=== PATIENT | female | born 1940 | race Caucasian/White ===

== ENCOUNTER 2020-08-30 07:06 | Emergency (ER) | payer OTHER ==
[~2020-08-30] VITALS: Ht 162.6 cm; Wt 77.0 kg
[2020-08-30] MEDS ORDERED: SODIUM CHLORIDE 0.9% 500 ML IV ONE (07:45)
[2020-08-30 08:46] LABS: BASOPHILS % 0.3 % (0.0-2.0); EOSINOPHILS % 0.9 % (0.0-5.0); HEMATOCRIT. 42.2 % (36.0-48.0); HEMOGLOBIN. 14.2 g/dL (12.0-16.0); LYMPHOCYTES % 17.7 % (20.0-50.0); MEAN CORPUSCULAR HEMOGLOBIN 30.3 pg (28.0-32.0); MEAN CORPUSCULAR VOLUME 90.1 fL (81.0-99.0); MEAN PLATELET VOLUME 8.7 fl (7.4-10.4); MONOCYTES % 7.1 % (2.0-8.0); PLATELET 265 x1000/uL (130-400); RED BLOOD CELL COUNT 4.68 mill/uL (4.2-5.4); RED CELL DISTRIBUTION WIDTH 14.1 % (11.6-14.6)
[2020-08-30 08:53] LABS: CHLORIDE 104 mEq/L (98-107)
[2020-08-30 10:00] VITALS: BP 142/76
== END 2020-08-30 11:32 | disposition home or self-care (01) ==
LOC: ER 07:34
DX: R42 Dizziness and giddiness (principal); E78.00 Pure hypercholesterolemia, unspecified; E11.9 Type 2 diabetes mellitus without complications
CPT/HCPCS: 36415; 71045; 80053; 83880; 84484; 85025; 93005; 96360; 99285; J7030

== ENCOUNTER 2021-11-25 10:06 | Emergency (ER) | payer OTHER, MEDICAID ==
[~2021-11-25] VITALS: Ht 167.6 cm; Wt 70.0 kg
[2021-11-25] MEDS ORDERED: MECLIZINE 25MG TABLET PO ONE ×2 (10:15→13:45)
[2021-11-25] MEDS ORDERED: SODIUM CHLORIDE 0.9% 1,000 ML IV ONE (10:15)
[2021-11-25 10:38] LABS: BASOPHILS % 0.3 % (0.0-2.0); EOSINOPHILS % 0.7 % (0.0-5.0); HEMATOCRIT. 42.3 % (36.0-48.0); HEMOGLOBIN. 14.1 g/dL (12.0-16.0); LYMPHOCYTES % 22.8 % (20.0-50.0); MEAN CORPUSCULAR HEMOGLOBIN 30.5 pg (28.0-32.0); MEAN CORPUSCULAR VOLUME 91.5 fL (81.0-99.0); MEAN PLATELET VOLUME 8.1 fl (7.4-10.4); MONOCYTES % 6.6 % (2.0-8.0); NEUTROPHILS % 69.6 % (40.0-76.0); PLATELET 285 x1000/uL (130-400); RED BLOOD CELL COUNT 4.63 mill/uL (4.2-5.4); RED CELL DISTRIBUTION WIDTH 13.5 % (11.6-14.6)
[2021-11-25 10:48] LABS: CHLORIDE 104 mEq/L (98-107)
[2021-11-25 10:55] LABS: PHOSPHORUS 3.2 mg/dL (2.5-4.9)
[2021-11-25 11:39] LABS: CLARITY URINE CLEAR (CLEAR); COLOR URINE YELLOW (YELLOW); KETONES URINE NEGATIVE (NEGATIVE); LEUKOCYTE ESTERASE URINE NEGATIVE (NEGATIVE); NITRITE URINE NEGATIVE (NEGATIVE); OCCULT BLOOD URINE TRACE (NEGATIVE); PH URINE 8.5 (4.5-8.0); PROTEIN URINE 1+ (NEGATIVE); SPECIFIC GRAVITY URINE 1.008 (1.005-1.030); UROBILINOGEN URINE 0.2 E.U./dL (0.2-1.0)
[2021-11-25] MEDS ORDERED: MECL-159 MT (12:27)
[2021-11-25] MEDS ORDERED: KETOROLAC 30MG/ML VIAL IV ONE (13:45)
[2021-11-25] MEDS ORDERED: ASPIRIN 81MG TABLET PO ONE (16:45)
[2021-11-25] MEDS ORDERED: LORAZEPAM 2MG/ML CPJ IV ONE (16:45)
[2021-11-25 18:23] VITALS: BP 123/65
== END 2021-11-25 18:29 | disposition home or self-care (01) ==
LOC: ER 10:08
DX: R42 Dizziness and giddiness (principal); I25.10 Atherosclerotic heart disease of native coronary artery without angina pectoris; E11.9 Type 2 diabetes mellitus without complications; E78.00 Pure hypercholesterolemia, unspecified; I10 Essential (primary) hypertension
CPT/HCPCS: 36415; 70450; 71045; 80053; 81003; 82962; 83735; 83880; 84100; 84484; 85025; 93005; 96361; 96374; 96375; 99285; J1885; J2060; J7030; J8597

== ENCOUNTER 2022-01-25 18:04 | Inpatient (IN) | payer OTHER, MEDICAID ==
[~2022-01-25] VITALS: Ht 154.9 cm; Wt 78.5 kg
[~2022-01-25 18:04] MED LIST: MECL-159 MT
[2022-01-25] MEDS ORDERED: SODIUM CHLORIDE 0.9% 1,000 ML IV ONE (18:45)
[2022-01-25 18:56] LABS: BASOPHILS % 0.5 % (0.0-2.0); EOSINOPHILS % 0.6 % (0.0-5.0); HEMATOCRIT. 39.8 % (36.0-48.0); HEMOGLOBIN. 13.4 g/dL (12.0-16.0); LYMPHOCYTES % 22.1 % (20.0-50.0); MEAN CORPUSCULAR HEMOGLOBIN 30.6 pg (28.0-32.0); MEAN CORPUSCULAR VOLUME 91.1 fL (81.0-99.0); MEAN PLATELET VOLUME 8.2 fl (7.4-10.4); MONOCYTES % 7.3 % (2.0-8.0); NEUTROPHILS % 69.5 % (40.0-76.0); PLATELET 283 x1000/uL (130-400); RED BLOOD CELL COUNT 4.37 mill/uL (4.2-5.4); RED CELL DISTRIBUTION WIDTH 13.6 % (11.6-14.6)
[2022-01-25 19:00] LABS: CHLORIDE 101 mEq/L (98-107)
[2022-01-25] MEDS ORDERED: ASPIRIN 325MG EC TABLET PO ONE (20:30)
[2022-01-25] MEDS ORDERED: MELATONIN 3MG TABLET PO PRN (23:45)
[2022-01-25] MEDS ORDERED: ONDANSETRON HCL 4MG/2ML INJ IV PRN (23:45)
[2022-01-25] MEDS ORDERED: ACETAMINOPHEN 325MG TABLET PO PRN (23:45)
[2022-01-25] MEDS ORDERED: BUPR-102 PO (23:49)
[2022-01-25] MEDS ORDERED: ATOR20TA65 PO (23:49)
[2022-01-25] MEDS ORDERED: LISI40TA13 PO (23:49)
[2022-01-25] MEDS ORDERED: FAMO40TA7 PO (23:49)
[2022-01-25] MEDS ORDERED: MELA10TA2 PO (23:49)
[2022-01-25] MEDS ORDERED: BUPR100T13 PO (23:49)
[2022-01-26] VITALS (7 sets, daily range): BP systolic 117–131; BP diastolic 51–62
[2022-01-26 07:41] LABS: BASOPHILS % 0.4 % (0.0-2.0); HEMATOCRIT. 38.8 % (36.0-48.0); HEMOGLOBIN. 13.1 g/dL (12.0-16.0); LYMPHOCYTES % 23.3 % (20.0-50.0); MEAN CORPUSCULAR HEMOGLOBIN 30.8 pg (28.0-32.0); MEAN CORPUSCULAR VOLUME 90.9 fL (81.0-99.0); MEAN PLATELET VOLUME 8.4 fl (7.4-10.4); MONOCYTES % 8.6 % (2.0-8.0); NEUTROPHILS % 66.7 % (40.0-76.0); PLATELET 267 x1000/uL (130-400); RED BLOOD CELL COUNT 4.27 mill/uL (4.2-5.4); RED CELL DISTRIBUTION WIDTH 13.7 % (11.6-14.6)
[2022-01-26] MEDS: ENOXAPARIN 40MG/0.4ML SYR SUBCUT SCH (08:11)
[2022-01-26] MEDS: ASPIRIN 81MG TABLET PO SCH (08:11)
[2022-01-26] MEDS: FAMOTIDINE 20MG TABLET PO SCH (08:11)
[2022-01-26] MEDS: LISINOPRIL 40MG TABLET PO SCH (08:12)
[2022-01-26] MEDS: BUPROPION HCL 150MG SR TABLET PO SCH (08:15)
[2022-01-26 08:26] LABS: CHLORIDE 104 mEq/L (98-107)
[2022-01-26 08:37] LABS: HDL CHOLESTEROL 41 mg/dL (40-59); LDL CHOLESTEROL 50 mg/dL (5-100)
[2022-01-26] MEDS ORDERED: BUPROPION HCL 150 MG PO SCH (09:00)
[2022-01-26] MEDS: ATORVASTATIN CALCIUM 20MG TABLET PO SCH (21:08)
[2022-01-27] VITALS (7 sets, daily range): BP systolic 110–132; BP diastolic 51–65
[2022-01-27 07:29] LABS: BASOPHILS % 0.4 % (0.0-2.0); EOSINOPHILS % 0.8 % (0.0-5.0); HEMATOCRIT. 39.9 % (36.0-48.0); HEMOGLOBIN. 13.5 g/dL (12.0-16.0); LYMPHOCYTES % 23.5 % (20.0-50.0); MEAN CORPUSCULAR HEMOGLOBIN 30.9 pg (28.0-32.0); MEAN CORPUSCULAR VOLUME 91.6 fL (81.0-99.0); MEAN PLATELET VOLUME 8.1 fl (7.4-10.4); MONOCYTES % 8.4 % (2.0-8.0); NEUTROPHILS % 66.9 % (40.0-76.0); PLATELET 278 x1000/uL (130-400); RED BLOOD CELL COUNT 4.36 mill/uL (4.2-5.4); RED CELL DISTRIBUTION WIDTH 13.3 % (11.6-14.6)
[2022-01-27 08:31] LABS: CHLORIDE 105 mEq/L (98-107)
[2022-01-27 08:39] LABS: PHOSPHORUS 3.7 mg/dL (2.5-4.9)
[2022-01-27] MEDS: ENOXAPARIN 40MG/0.4ML SYR SUBCUT SCH (08:39)
[2022-01-27] MEDS: BUPROPION HCL 150MG SR TABLET PO SCH (08:40)
[2022-01-27] MEDS: ASPIRIN 81MG TABLET PO SCH (08:40)
[2022-01-27] MEDS: FAMOTIDINE 20MG TABLET PO SCH (08:40)
[2022-01-27] MEDS: LISINOPRIL 40MG TABLET PO SCH (08:40)
[2022-01-27] MEDS: ATORVASTATIN CALCIUM 20MG TABLET PO SCH (20:20)
[2022-01-28] VITALS: BP 123/44
[2022-01-28 04:00] VITALS: BP 119/53
[2022-01-28 06:26] LABS: BASOPHILS % 0.4 % (0.0-2.0); EOSINOPHILS % 1.1 % (0.0-5.0); HEMATOCRIT. 39.1 % (36.0-48.0); HEMOGLOBIN. 13.3 g/dL (12.0-16.0); LYMPHOCYTES % 24.8 % (20.0-50.0); MEAN CORPUSCULAR HEMOGLOBIN 30.6 pg (28.0-32.0); MEAN CORPUSCULAR VOLUME 90.1 fL (81.0-99.0); MEAN PLATELET VOLUME 8.3 fl (7.4-10.4); MONOCYTES % 9.2 % (2.0-8.0); NEUTROPHILS % 64.5 % (40.0-76.0); PLATELET 281 x1000/uL (130-400); RED BLOOD CELL COUNT 4.35 mill/uL (4.2-5.4); RED CELL DISTRIBUTION WIDTH 13.3 % (11.6-14.6)
[2022-01-28 08:00] VITALS: BP 143/58
[2022-01-28 08:14] LABS: CHLORIDE 102 mEq/L (98-107)
[2022-01-28 08:33] LABS: PHOSPHORUS 3.7 mg/dL (2.5-4.9)
[2022-01-28] MEDS: ASPIRIN 81MG TABLET PO SCH (10:05)
[2022-01-28] MEDS: BUPROPION HCL 150MG SR TABLET PO SCH (10:05)
[2022-01-28] MEDS: ENOXAPARIN 40MG/0.4ML SYR SUBCUT SCH (10:05)
[2022-01-28] MEDS: LISINOPRIL 40MG TABLET PO SCH (10:07)
[2022-01-28] MEDS: FAMOTIDINE 20MG TABLET PO SCH (10:07)
[2022-01-28 12:00] VITALS: BP 138/58
== END 2022-01-28 14:35 | disposition home or self-care (01) | DRG 556 ==
LOC: ER 18:04 → 8WST 20:27 → EDBEDREQTM 20:42 → EDBEDREQ 20:42 → ENRESERV 21:15
PROVIDERS: ADMIT Internal Medicine; ATTEND Internal Medicine
DX: M62.81 Muscle weakness (generalized) (principal); G45.9 Transient cerebral ischemic attack, unspecified; E78.00 Pure hypercholesterolemia, unspecified; I10 Essential (primary) hypertension; I25.10 Atherosclerotic heart disease of native coronary artery without angina pectoris; E11.9 Type 2 diabetes mellitus without complications; K21.9 Gastro-esophageal reflux disease without esophagitis; E66.9 Obesity, unspecified; Z68.32 Body mass index [BMI] 32.0-32.9, adult
CPT/HCPCS: 36415; 70551; 71045; 80048; 80053; 80061; 80076; 82962; 83735; 83880; 84100; 84484; 85025; 93005; 97162; 99285; J1650; J7030

== ENCOUNTER 2022-10-15 19:09 | Emergency (ER) | payer OTHER, MEDICAID ==
[~2022-10-15] VITALS: Ht 167.6 cm; Wt 68.0 kg
[~2022-10-15 19:09] MED LIST changes: +ATOR20TA65 PO; +BUPR-102 PO; +FAMO40TA7 PO; +LISI40TA13 PO; -MECL-159 MT; +MELA10TA2 PO
[2022-10-15 20:59] LABS: BASOPHILS % 0.3 % (0.0-2.0); EOSINOPHILS % 0.9 % (0.0-5.0); HEMATOCRIT. 39.2 % (36.0-48.0); HEMOGLOBIN. 13.2 g/dL (12.0-16.0); MEAN CORPUSCULAR HEMOGLOBIN 30.7 pg (28.0-32.0); MEAN CORPUSCULAR VOLUME 91.4 fL (81.0-99.0); MEAN PLATELET VOLUME 8.2 fl (7.4-10.4); MONOCYTES % 8.6 % (2.0-8.0); NEUTROPHILS % 69.2 % (40.0-76.0); PLATELET 278 x1000/uL (130-400); RED BLOOD CELL COUNT 4.29 mill/uL (4.2-5.4); RED CELL DISTRIBUTION WIDTH 13.7 % (11.6-14.6)
[2022-10-15 21:10] LABS: CHLORIDE 108 mEq/L (98-107)
[2022-10-16 05:45] VITALS: BP 148/62
== END 2022-10-16 06:14 | disposition home or self-care (01) ==
LOC: ER 19:09
DX: R42 Dizziness and giddiness (principal); R00.2 Palpitations; I25.10 Atherosclerotic heart disease of native coronary artery without angina pectoris; E78.00 Pure hypercholesterolemia, unspecified; I10 Essential (primary) hypertension; G51.0 Bell's palsy; Z90.49 Acquired absence of other specified parts of digestive tract; Z98.890 Other specified postprocedural states
CPT/HCPCS: 36415; 71045; 80053; 83880; 84443; 85025; 93005; 99285

== ENCOUNTER 2024-04-13 21:31 | Emergency (ER) | payer OTHER, MEDICAID ==
[~2024-04-13] VITALS: Ht 157.5 cm; Wt 72.0 kg
[~2024-04-13 21:31] MED LIST changes: +ASPI-1497 MT; -ATOR20TA65 PO; +LIP40 MT
[2024-04-13 22:07] VITALS: O2SAT 97
[2024-04-13 23:02] LABS: CLARITY URINE CLOUDY (CLEAR); COLOR URINE YELLOW (YELLOW); GLUCOSE URINE NEGATIVE (NEGATIVE); KETONES URINE NEGATIVE (NEGATIVE); LEUKOCYTE ESTERASE URINE TRACE (NEGATIVE); NITRITE URINE NEGATIVE (NEGATIVE); OCCULT BLOOD URINE 1+ (NEGATIVE); PROTEIN URINE NEGATIVE (NEGATIVE); SPECIFIC GRAVITY URINE 1.016 (1.005-1.030)
[2024-04-13 23:24] LABS: BACTERIA URINE 3+; SQUAMOUS EPITHELIAL CELL URINE FEW /lpf (RARE/1+); WBC URINE 0-2 /hpf (0-2)
[2024-04-13 23:25] LABS: CHLORIDE 101 mEq/L (98-107); POTASSIUM 3.4 mEq/L (3.5-5.1); SODIUM 136 mEq/L (136-145)
[2024-04-13 23:26] LABS: CARBON DIOXIDE 27 mEq/L (21-32)
[2024-04-13 23:27] LABS: CALCIUM 9.5 mg/dL (8.7-10.4)
[2024-04-13 23:31] LABS: CREATININE 0.8 mg/dL (0.6-1.0); GLUCOSE 119 mg/dL (70-105)
[2024-04-13 23:32] LABS: UREA NITROGEN BLOOD 10 mg/dL (9-23)
[2024-04-13 23:33] LABS: ALANINE AMINOTRANSFERASE 20 IU/L (10-49); ALBUMIN 4.6 g/dL (3.2-4.8); ASPARTATE AMINOTRANSFERASE 18 IU/L (<34)
[2024-04-13 23:34] LABS: BILIRUBIN DIRECT 0.2 mg/dL (<=3.0); BILIRUBIN TOTAL 0.5 mg/dL (0.1-1.0); PROTEIN TOTAL 7.5 g/dL (6.0-8.3)
[2024-04-13 23:35] LABS: HEMATOCRIT. 41.1 % (36.0-48.0); HEMOGLOBIN. 13.7 g/dL (12.0-16.0); MEAN CORPUSCULAR HGB CONC 33.4 g/dL (31.0-37.0); MEAN CORPUSCULAR VOLUME 92.7 fL (81.0-99.0); MEAN PLATELET VOLUME 8.6 fl (7.4-10.4); PLATELET 266 x1000/uL (130-400); RED BLOOD CELL COUNT 4.44 mill/uL (4.2-5.4); RED CELL DISTRIBUTION WIDTH 13.7 % (11.6-14.6); WHITE BLOOD COUNT 15.9 x1000/uL (4.5-11.0)
[2024-04-13 23:55] LABS: DIFFERENTIAL COMMENT 1
[2024-04-14] MEDS ORDERED: CEPH500C2 MT (00:17)
[2024-04-14] MEDS ORDERED: TOPUD MT (00:17)
[2024-04-14] MEDS ORDERED: DOCU-138 MT (00:17)
[2024-04-14 00:45] VITALS: BP 134/66; PULSE 61; RESP 16; TEMP 36.78072; O2SAT 97
[2024-04-14 01:14] LABS: PLATELET ESTIMATE NORMAL
== END 2024-04-14 00:45 | disposition home or self-care (01) ==
LOC: ER 21:31
DX: K59.00 Constipation, unspecified (principal); N39.0 Urinary tract infection, site not specified; E78.00 Pure hypercholesterolemia, unspecified; I10 Essential (primary) hypertension; Z90.49 Acquired absence of other specified parts of digestive tract; K80.20 Calculus of gallbladder without cholecystitis without obstruction; Z79.899 Other long term (current) drug therapy
CPT/HCPCS: 36415; 80048; 80076; 81003; 85025; 93005; 99284

== ENCOUNTER 2024-12-14 12:12 | Emergency (ER) | payer MEDICARE, OTHER ==
[~2024-12-14] VITALS: Ht 154.9 cm; Wt 78.0 kg
[~2024-12-14 12:12] MED LIST changes: +CEPH500C2 MT; +DOCU-138 MT; +TOPUD MT
[2024-12-14 12:18] VITALS: O2SAT 96
[2024-12-14 15:09] LABS: CHLORIDE 103 mEq/L (98-107); SODIUM 137 mEq/L (136-145)
[2024-12-14 15:10] LABS: CARBON DIOXIDE 24 mEq/L (21-32)
[2024-12-14 15:11] LABS: CALCIUM 8.7 mg/dL (8.7-10.4)
[2024-12-14 15:15] LABS: CREATININE 0.8 mg/dL (0.6-1.0)
[2024-12-14 15:16] LABS: GLUCOSE 102 mg/dL (70-105); UREA NITROGEN BLOOD 10 mg/dL (9-23)
[2024-12-14 15:19] LABS: BASOPHILS % 0.1 % (0.0-2.0); EOSINOPHILS % 0.5 % (0.0-5.0); HEMATOCRIT. 38.6 % (36.0-48.0); LYMPHOCYTES % 23.2 % (20.0-50.0); MEAN CORPUSCULAR HEMOGLOBIN 30.8 pg (28.0-32.0); MEAN CORPUSCULAR HGB CONC 33.6 g/dL (31.0-37.0); MEAN CORPUSCULAR VOLUME 91.7 fL (81.0-99.0); MEAN PLATELET VOLUME 8.6 fl (7.4-10.4); MONOCYTES % 10.7 % (2.0-8.0); NEUTROPHILS % 65.5 % (40.0-76.0); PLATELET 225 x1000/uL (130-400); RED BLOOD CELL COUNT 4.21 mill/uL (4.2-5.4); WHITE BLOOD COUNT 8.5 x1000/uL (4.5-11.0)
[2024-12-14 15:24] LABS: GLUCOSE URINE NEGATIVE (NEGATIVE); KETONES URINE NEGATIVE (NEGATIVE)
[2024-12-14 16:04] LABS: ALANINE AMINOTRANSFERASE 15 IU/L (10-49); ALBUMIN 4.1 g/dL (3.2-4.8); ASPARTATE AMINOTRANSFERASE 22 IU/L (<34); BILIRUBIN DIRECT 0.1 mg/dL (<=3.0); BILIRUBIN TOTAL 0.4 mg/dL (0.1-1.0); PROTEIN TOTAL 6.5 g/dL (6.0-8.3)
[2024-12-14 16:29] LABS: CLARITY URINE CLEAR (CLEAR); COLOR URINE YELLOW (YELLOW); NITRITE URINE NEGATIVE (NEGATIVE); OCCULT BLOOD URINE 2+ (NEGATIVE); PROTEIN URINE NEGATIVE (NEGATIVE); SPECIFIC GRAVITY URINE 1.016 (1.005-1.030); UROBILINOGEN URINE 0.2 E.U./dL (0.2-1.0)
[2024-12-14 16:30] LABS: LEUKOCYTE ESTERASE URINE 2+ (NEGATIVE)
[2024-12-14 16:38] VITALS: BP 161/71; PULSE 60; RESP 14; TEMP 36.9; O2SAT 96
[2024-12-14 16:43] LABS: BACTERIA URINE 2+; SQUAMOUS EPITHELIAL CELL URINE FEW /lpf (RARE/1+)
== END 2024-12-14 16:45 | disposition home or self-care (01) ==
LOC: ER 12:12
DX: R19.7 Diarrhea, unspecified (principal); E78.00 Pure hypercholesterolemia, unspecified; I10 Essential (primary) hypertension; I25.10 Atherosclerotic heart disease of native coronary artery without angina pectoris; Z79.82 Long term (current) use of aspirin; Z79.899 Other long term (current) drug therapy; Z90.49 Acquired absence of other specified parts of digestive tract
CPT/HCPCS: 36415; 80048; 80076; 81003; 85025; 99283